=== PATIENT | female | born 1985 | race Caucasian/White ===

== ENCOUNTER 2017-11-12 10:37 | Emergency (ER) | payer OTHER ==
[~2017-11-12] VITALS: Ht 162.6 cm; Wt 59.0 kg
[~2017-11-12 10:37] MED LIST: ACTICIN 5% CREA60 G1 TOP; ATIVAN0.5 MG PO; ATIVAN1 MG PO; BENADRYL ALLERG25 MG; BENADRYL25 MG PO; CEFUROXIME250 MG PO; CIPRO500 MG PO; CIPROFLOXACIN500 M1 PO; CLONAZEPAM 1 MG1 M1 PO; FLAGYL500 MG PO; HYDROCODONE-AP1 EAC6 PO; HYDROCODONE-APA1 TA1 PO; IBUPROFEN 800800 M1 PO; KEFLEX500 MG; KLONOPIN1 MG PO; LORAZEPAM 0.50.5 MG PO; MEDROLDOSEPACK PO; MIRENA; MOMETASONE FURO45 GM TP; PEPCID20 MG PO; PEPCID40 MG PO; PREDNISONE 10 M10 MG PO; PRILOSEC20 MG PO; PROTONIX40 M1 PO; SILVADENE20 GM TP; ULTRAM 50MG TAB50 MG PO; VICODIN 5-5001 EACH PO; ZOLOFT; ZOLOFT100 MG PO; ZYRTEC 10 MG TA10 M1 PO
[2017-11-12 11:46] VITALS: BP 99/64
== END 2017-11-12 11:46 | disposition home or self-care (01) ==
LOC: M.ERS 10:37
DX: F41.9 Anxiety disorder, unspecified (principal); K21.9 Gastro-esophageal reflux disease without esophagitis; Z88.0 Allergy status to penicillin; Z91.013 Allergy to seafood; Z90.49 Acquired absence of other specified parts of digestive tract; Z88.2 Allergy status to sulfonamides; Z98.890 Other specified postprocedural states; Z86.14 Personal history of Methicillin resistant Staphylococcus aureus infection

== ENCOUNTER 2017-11-13 16:36 | Emergency (ER) | payer OTHER ==
[~2017-11-13] VITALS: Ht 162.6 cm; Wt 59.0 kg
[2017-11-13 16:56] LABS: URINE BILIRUBIN NEGATIVE (Negative); URINE BLOOD NEGATIVE (Negative); URINE CLARITY CLEAR; URINE COLOR YELLOW; URINE GLUCOSE-RANDOM NEGATIVE (Negative); URINE KETONES TRACE (Negative); URINE LEUKOCYTES-REFLEX NEGATIVE (Negative); URINE NITRITE-REFLEX NEGATIVE (Negative); URINE PROTEIN NEGATIVE (Negative); URINE UROBILINOGEN 0.2 E.U./dl (0.2-1.0)
[2017-11-13 17:23] LABS: ABSOLUTE BASOPHILS 0.1 thou/uL (0.0-0.2); ABSOLUTE EOSINOPHILS 0.3 thou/uL (0.0-0.7); ABSOLUTE LYMPHOCYTES 1.9 thou/uL (0.8-5.3); ABSOLUTE MONOCYTES 0.2 thou/uL (0.0-1.2); ABSOLUTE NEUTROPHILS 3.4 thou/uL (1.6-8.1); BASOPHILS 0.9 %; EOSINOPHILS 4.5 %; HEMATOCRIT 36.3 % (37.0-47.0); HEMOGLOBIN 12.4 gm/dL (12.0-15.0); LYMPHOCYTES 31.9 %; MCH 32.7 pg (26.0-34.0); MCHC 34.2 g/dL (28.0-37.0); MCV 95.4 fL (80.0-100.0); MONOCYTES 3.9 %; MPV 9.3 fl. (7.2-11.1); NUCLEATED RBCS 0 /100WBC; PLATELET COUNT* 150 thou/uL (150-400); POLYS 58.8 %; RBC 3.81 mil/uL (4.20-5.00); RDW-CV 12.1 % (10.5-14.5); WBC 5.8 thou/uL (4.0-11.0)
[2017-11-13 17:29] LABS: CALCIUM 9.4 mg/dL (8.5-10.1); POTASSIUM 3.2 mmol/L (3.5-5.1)
[2017-11-13 17:33] LABS: ALBUMIN 3.9 g/dL (3.4-5.0); TOTAL BILIRUBIN 0.2 mg/dL (<0.1-1.0); TOTAL PROTEIN 6.9 g/dL (6.4-8.2)
[2017-11-13 18:03] VITALS: BP 118/58
== END 2017-11-13 18:04 | disposition home or self-care (01) ==
LOC: M.ERS 16:36
PROVIDERS: Physician Assistant
DX: R10.32 Left lower quadrant pain (principal); K21.9 Gastro-esophageal reflux disease without esophagitis; F41.9 Anxiety disorder, unspecified; Z88.0 Allergy status to penicillin; Z88.2 Allergy status to sulfonamides; Z91.013 Allergy to seafood; Z87.442 Personal history of urinary calculi; Z90.49 Acquired absence of other specified parts of digestive tract

== ENCOUNTER 2017-12-09 15:41 | Emergency (ER) | payer OTHER ==
[~2017-12-09] VITALS: Ht 162.6 cm; Wt 59.0 kg
[2017-12-09] MEDS ORDERED: DOXYCYCLINE 10100 M1 PO (16:38)
[2017-12-09 17:07] VITALS: BP 128/67
== END 2017-12-09 17:08 | disposition home or self-care (01) ==
LOC: M.ERS 15:41
DX: S61.250A Open bite of right index finger without damage to nail, initial encounter (principal); F41.9 Anxiety disorder, unspecified; K21.9 Gastro-esophageal reflux disease without esophagitis; F17.200 Nicotine dependence, unspecified, uncomplicated; Z87.442 Personal history of urinary calculi; Z90.49 Acquired absence of other specified parts of digestive tract; Z87.440 Personal history of urinary (tract) infections; Z86.14 Personal history of Methicillin resistant Staphylococcus aureus infection; Z88.0 Allergy status to penicillin; Z88.2 Allergy status to sulfonamides; Z91.013 Allergy to seafood; W50.3XXA Accidental bite by another person, initial encounter; Y93.89 Activity, other specified; Y92.89 Other specified places as the place of occurrence of the external cause; Y99.8 Other external cause status

== ENCOUNTER 2018-03-21 20:11 | Emergency (ER) | payer OTHER ==
[~2018-03-21] VITALS: Ht 162.6 cm; Wt 56.7 kg
[~2018-03-21 20:11] MED LIST changes: +DOXYCYCLINE 10100 M1 PO
[2018-03-21 21:06] LABS: ABSOLUTE BASOPHILS 0.1 thou/uL (0.0-0.2); ABSOLUTE EOSINOPHILS 0.5 thou/uL (0.0-0.7); ABSOLUTE LYMPHOCYTES 2.6 thou/uL (0.8-5.3); ABSOLUTE MONOCYTES 0.3 thou/uL (0.0-1.2); ABSOLUTE NEUTROPHILS 3.9 thou/uL (1.6-8.1); BASOPHILS 1.2 %; EOSINOPHILS 6.3 %; HEMATOCRIT 42.6 % (37.0-47.0); HEMOGLOBIN 14.3 gm/dL (12.0-15.0); LYMPHOCYTES 35.1 %; MCH 32.1 pg (26.0-34.0); MCHC 33.6 g/dL (28.0-37.0); MCV 95.5 fL (80.0-100.0); MONOCYTES 3.8 %; MPV 8.6 fl. (7.2-11.1); NUCLEATED RBCS 0 /100WBC; PLATELET COUNT* 212 thou/uL (150-400); POLYS 53.6 %; RBC 4.46 mil/uL (4.20-5.00); RDW-CV 12.5 % (10.5-14.5); WBC 7.3 thou/uL (4.0-11.0)
[2018-03-21 21:13] LABS: CALCIUM 9.5 mg/dL (8.5-10.1); CREATININE 0.9 mg/dL (0.6-1.3); POTASSIUM 3.7 mmol/L (3.5-5.1)
[2018-03-21 21:17] LABS: ALBUMIN 3.8 g/dL (3.4-5.0); TOTAL BILIRUBIN 0.3 mg/dL (<0.1-1.0); TOTAL PROTEIN 7.2 g/dL (6.4-8.2)
[2018-03-21 21:50] LABS: URINE BILIRUBIN NEGATIVE (Negative); URINE BLOOD NEGATIVE (Negative); URINE CLARITY CLEAR; URINE COLOR STRAW; URINE GLUCOSE-RANDOM NEGATIVE (Negative); URINE KETONES NEGATIVE (Negative); URINE LEUKOCYTES-REFLEX NEGATIVE (Negative); URINE NITRITE-REFLEX NEGATIVE (Negative); URINE PROTEIN NEGATIVE (Negative); URINE SPECIFIC GRAVITY <= 1.005 (1.005-1.030); URINE UROBILINOGEN 0.2 E.U./dl (0.2-1.0)
[2018-03-21 22:43] VITALS: BP 99/67
--- NOTE | 2018-03-23 15:49 | EKG ---
[place] [address] ELECTROCARDIOGRAM REPORT Name: REKHA TRINH Room: [facility]#: [id number] Admission: 03/21/18 Attend Phys: Discharge: 03/21/18 Date of : 83 Report #: [id number] THIS REPORT FOR: //name// [facility] ED Test Date: 2018-03-21 Test Time: 21:15:53 Pat Name: REKHA TRINH Department: Room: Gender: F Product Representative: TERI : 1985 Requested By: Marilu Pérez Order Number: [id number] MD: Tonny Naidu Measurements Intervals [place] Rate: 61 P: 56 MS: 176 QRS: 87 QRSD: 103 T: 58 QT: 406 QTc: 409 Interpretive Statements Sinus rhythm with sinus arrhythmia Baseline wander in lead(s) I when compared to prior EKG no significant changes noted Electronically Signed On 03-23-2018 15:49:09 CDT by Tonny Naidu [email or web address] <ELECTRONICALLY SIGNED> By: Tonny Naidu MD, [facility] 03/23/18 1549 [id number] 14 Tonny Naidu MD, FACC /EPI
== END 2018-03-21 22:43 | disposition home or self-care (01) ==
LOC: M.ERS 20:11
PROVIDERS: Nurse Practitioner Family
DX: F41.9 Anxiety disorder, unspecified (principal); R12 Heartburn; K21.9 Gastro-esophageal reflux disease without esophagitis; Z90.49 Acquired absence of other specified parts of digestive tract; Z86.14 Personal history of Methicillin resistant Staphylococcus aureus infection; Z87.442 Personal history of urinary calculi; Z88.0 Allergy status to penicillin; Z88.1 Allergy status to other antibiotic agents; Z91.013 Allergy to seafood

== ENCOUNTER 2018-08-08 13:31 | Emergency (ER) | payer OTHER ==
[~2018-08-08] VITALS: Ht 162.6 cm; Wt 59.0 kg
[2018-08-08] MEDS ORDERED: ZPAK PO (13:52)
[2018-08-08] MEDS ORDERED: PROMETHAZINE V473 ML PO (13:52)
[2018-08-08] MEDS ORDERED: TESSALON PERLE100 MG PO (13:52)
[2018-08-08] MEDS ORDERED: MEDROLDOSEPACK PO (13:52)
[2018-08-08] MEDS ORDERED: PROAIR HFA8.5 GM INH (13:53)
[2018-08-08 14:08] VITALS: BP 103/70
== END 2018-08-08 14:09 | disposition home or self-care (01) ==
LOC: M.ERS 13:31
DX: J20.9 Acute bronchitis, unspecified (principal); K21.9 Gastro-esophageal reflux disease without esophagitis; F41.9 Anxiety disorder, unspecified; F17.210 Nicotine dependence, cigarettes, uncomplicated; Z90.49 Acquired absence of other specified parts of digestive tract; Z87.442 Personal history of urinary calculi; Z86.14 Personal history of Methicillin resistant Staphylococcus aureus infection; Z88.0 Allergy status to penicillin; Z88.2 Allergy status to sulfonamides; Z91.013 Allergy to seafood

== ENCOUNTER 2019-08-07 21:20 | Emergency (ER) | payer OTHER ==
[~2019-08-07] VITALS: Ht 162.6 cm; Wt 56.7 kg
[~2019-08-07 21:20] MED LIST changes: +PROAIR HFA8.5 GM INH; +PROMETHAZINE V473 ML PO; +TESSALON PERLE100 MG PO; +ZPAK PO
[2019-08-07] MEDS ORDERED: MEDROLDOSEPACK PO (21:51)
[2019-08-07] MEDS ORDERED: ATIVAN0.5 M1 PO (21:53)
[2019-08-07 22:15] VITALS: BP 111/71
== END 2019-08-07 22:17 | disposition home or self-care (01) ==
LOC: M.ERS 21:20
DX: R21 Rash and other nonspecific skin eruption (principal); K21.9 Gastro-esophageal reflux disease without esophagitis; F41.9 Anxiety disorder, unspecified; Z88.0 Allergy status to penicillin; Z88.2 Allergy status to sulfonamides; Z91.013 Allergy to seafood; Z87.442 Personal history of urinary calculi; Z90.49 Acquired absence of other specified parts of digestive tract; Z87.440 Personal history of urinary (tract) infections; Z86.14 Personal history of Methicillin resistant Staphylococcus aureus infection

== ENCOUNTER 2019-08-08 04:18 | Emergency (ER) | payer OTHER ==
[~2019-08-08] VITALS: Ht 167.6 cm; Wt 56.7 kg
[~2019-08-08 04:18] MED LIST changes: +ATIVAN0.5 M1 PO
[2019-08-08 05:00] VITALS: BP 116/46
== END 2019-08-08 05:01 | disposition home or self-care (01) ==
LOC: M.ERS 04:18
DX: R21 Rash and other nonspecific skin eruption (principal); K21.9 Gastro-esophageal reflux disease without esophagitis; Z88.0 Allergy status to penicillin; Z88.2 Allergy status to sulfonamides; Z91.013 Allergy to seafood; Z87.442 Personal history of urinary calculi; Z90.49 Acquired absence of other specified parts of digestive tract; Z87.440 Personal history of urinary (tract) infections; Z86.14 Personal history of Methicillin resistant Staphylococcus aureus infection

== ENCOUNTER 2019-10-06 13:39 | Emergency (ER) | payer OTHER ==
[~2019-10-06] VITALS: Ht 157.5 cm; Wt 49.9 kg
[2019-10-06 13:56] LABS: URINE BILIRUBIN NEGATIVE (Negative); URINE BLOOD NEGATIVE (Negative); URINE CLARITY CLEAR; URINE COLOR YELLOW; URINE GLUCOSE-RANDOM NEGATIVE (Negative); URINE KETONES NEGATIVE (Negative); URINE PROTEIN NEGATIVE (Negative); URINE SPECIFIC GRAVITY 1.015 (1.005-1.030); URINE UROBILINOGEN 0.2 E.U./dl (0.2-1.0)
[2019-10-06 13:57] LABS: URINE LEUKOCYTES-REFLEX 2+ (Negative); URINE NITRITE-REFLEX POSITIVE (Negative)
[2019-10-06] MEDS ORDERED: PYRIDIUM100 M1 PO (14:04)
[2019-10-06] MEDS ORDERED: MACROBID 100 M100 M2 PO (14:04)
[2019-10-06 14:11] VITALS: BP 127/56
[2019-10-06] MEDS ORDERED: CIPRO500 MG PO (14:11)
[2019-10-06 14:23] LABS: CASTS None Seen /LPF (None Seen); CRYSTALS None Seen /LPF (None Seen); SQUAMOUS 0-3 Few /LPF (0-3); URINE RBC 0-2 Rare /HPF (0-2); URINE WBC-REFLEX 0-5 Rare /HPF (0-5)
== END 2019-10-06 14:11 | disposition home or self-care (01) ==
LOC: M.ERS 13:39
PROVIDERS: Nurse Practitioner Family
DX: N39.0 Urinary tract infection, site not specified (principal); K21.9 Gastro-esophageal reflux disease without esophagitis; F41.9 Anxiety disorder, unspecified; Z87.442 Personal history of urinary calculi; Z90.49 Acquired absence of other specified parts of digestive tract; Z86.14 Personal history of Methicillin resistant Staphylococcus aureus infection; Z88.0 Allergy status to penicillin; Z91.013 Allergy to seafood; Z88.2 Allergy status to sulfonamides

== ENCOUNTER 2020-03-03 06:18 | Emergency (ER) | payer OTHER ==
[~2020-03-03] VITALS: Ht 162.6 cm; Wt 59.0 kg
[~2020-03-03 06:18] MED LIST changes: +MACROBID 100 M100 M2 PO; +PYRIDIUM100 M1 PO
[2020-03-03] MEDS ORDERED: DIPHENHIST50 MG PO (06:30)
[2020-03-03] MEDS ORDERED: PREDNISONE 20 M20 M1 PO (06:42)
[2020-03-03] MEDS ORDERED: VISTARIL 25 MG25 M1 PO (06:42)
[2020-03-03 07:18] VITALS: BP 103/65
== END 2020-03-03 07:22 | disposition home or self-care (01) ==
LOC: M.ERS 06:18
DX: L50.9 Urticaria, unspecified (principal); K21.9 Gastro-esophageal reflux disease without esophagitis; F17.210 Nicotine dependence, cigarettes, uncomplicated; Z87.442 Personal history of urinary calculi; Z90.49 Acquired absence of other specified parts of digestive tract; Z86.14 Personal history of Methicillin resistant Staphylococcus aureus infection; Z87.440 Personal history of urinary (tract) infections; Z88.1 Allergy status to other antibiotic agents; Z88.2 Allergy status to sulfonamides; Z88.0 Allergy status to penicillin; Z91.013 Allergy to seafood

== ENCOUNTER 2021-05-16 00:22 | Emergency (ER) | payer BC ==
[~2021-05-16] VITALS: Ht 162.6 cm; Wt 59.0 kg
[~2021-05-16 00:22] MED LIST changes: +DIPHENHIST50 MG PO; +PREDNISONE 20 M20 M1 PO; +VISTARIL 25 MG25 M1 PO
[2021-05-16] MEDS ORDERED: PREDNISONE50 MG PO (03:09)
[2021-05-16 03:31] VITALS: BP 98/55
== END 2021-05-16 03:33 | disposition home or self-care (01) ==
LOC: M.ERS 00:22
DX: L53.9 Erythematous condition, unspecified (principal); T78.49XA Other allergy, initial encounter; K21.9 Gastro-esophageal reflux disease without esophagitis; Z87.442 Personal history of urinary calculi; Z90.49 Acquired absence of other specified parts of digestive tract; Z87.440 Personal history of urinary (tract) infections; Z86.14 Personal history of Methicillin resistant Staphylococcus aureus infection; Z88.1 Allergy status to other antibiotic agents; Z88.2 Allergy status to sulfonamides; Z88.0 Allergy status to penicillin; Z91.013 Allergy to seafood; X58.XXXA Exposure to other specified factors, initial encounter

== ENCOUNTER 2021-10-21 01:43 | Emergency (ER) | payer OTHER ==
[~2021-10-21] VITALS: Ht 162.6 cm; Wt 59.4 kg
[~2021-10-21 01:43] MED LIST changes: +PREDNISONE50 MG PO
[2021-10-21] MEDS ORDERED: CIPRO500 M1 PO (02:05)
[2021-10-21] MEDS ORDERED: CEFDINIR300 MG PO (03:19)
[2021-10-21] MEDS ORDERED: HYDROCODON-ACE1 EAC7 PO (03:19)
[2021-10-21] MEDS ORDERED: PERIDEX15 ML SWISH&SPIT (03:20)
[2021-10-21 03:29] VITALS: BP 127/81
== END 2021-10-21 03:30 | disposition home or self-care (01) ==
LOC: M.ERS 01:43
DX: A69.1 Other Vincent's infections (principal); K02.9 Dental caries, unspecified; F41.9 Anxiety disorder, unspecified; K21.9 Gastro-esophageal reflux disease without esophagitis; Z90.49 Acquired absence of other specified parts of digestive tract; Z79.899 Other long term (current) drug therapy; Z88.0 Allergy status to penicillin; Z88.2 Allergy status to sulfonamides; Z91.013 Allergy to seafood

== ENCOUNTER 2021-10-23 01:59 | Emergency (ER) | payer OTHER ==
[~2021-10-23] VITALS: Ht 162.6 cm; Wt 59.4 kg
[~2021-10-23 01:59] MED LIST changes: +CEFDINIR300 MG PO; +CIPRO500 M1 PO; +HYDROCODON-ACE1 EAC7 PO; +PERIDEX15 ML SWISH&SPIT
[2021-10-23 04:49] VITALS: BP 129/80
== END 2021-10-23 04:52 | disposition home or self-care (01) ==
LOC: M.ERS 01:59
DX: K02.9 Dental caries, unspecified (principal); K13.79 Other lesions of oral mucosa; K21.9 Gastro-esophageal reflux disease without esophagitis; Z90.49 Acquired absence of other specified parts of digestive tract; Z79.899 Other long term (current) drug therapy; Z88.2 Allergy status to sulfonamides; Z88.0 Allergy status to penicillin; Z91.013 Allergy to seafood